=== PATIENT | male | born 1970 | race Caucasian/White ===

== ENCOUNTER 2020-12-17 19:11 | Emergency (ER) | payer OTHER ==
[~2020-12-17 19:11] MED LIST: ASPIRIN E.C. 3325 MG PO; CARAFATE1 GM PO; CARVEDILOL6.25 MG PO; IMDUR 30MG TABL30 MG PO; LIPITOR40 MG PO; LISINOPRIL 2.52.5 MG PO; PROTONIX 40MG T40 MG PO; SPIRONOLACTONE25 MG PO; ZANTAC150 MG PO
[2020-12-17 21:49] LABS: EOSINOPHIL 2.4 % (0-5); HGB 14.3 g/dl (13.2-18.0); LYMPHOCYTE 46.4 % (15-48); MCH 30.5 pg (25.0-31.0); MCV 89.6 fL (78.0-100.0); MONOCYTE 8.9 % (0-12); MPV 9.8 fL (6.0-9.5); NEUTROPHIL 41.2 % (41-80); NRBC 0; PLT 150 K/uL (150-400); RBC 4.69 M/uL (4.70-6.00); RDW 13.9 % (11.5-14.0); WBC 6.7 K/uL (4.0-10.5)
[2020-12-17 21:53] LABS: INR 1.03 (0.9-1.2); PROTHROMBIN TIME 12.9 SECONDS (11.8-13.4); PTT 29.6 SECONDS (24.4-34.7)
[2020-12-17 22:01] LABS: ALBUMIN 3.5 g/dL (3.4-5.0); BILIRUBIN - TOTAL 0.3 mg/dL (0.2-1.0); BUN/CREAT RATIO (CALC) 8.3 RATIO; CREATININE 0.96 mg/dL (0.67-1.17); POTASSIUM 3.6 mmol/L (3.5-5.1); TOTAL PROTEIN 6.5 g/dL (6.4-8.2)
[2020-12-17] MEDS ORDERED: ELIQUIS5 MG PO (22:11)
== END 2020-12-17 22:25 | disposition home or self-care (01) ==
LOC: FER 19:11
PROVIDERS: Internal Medicine
DX: I82.612 Acute embolism and thrombosis of superficial veins of left upper extremity (principal); F17.210 Nicotine dependence, cigarettes, uncomplicated
CPT/HCPCS: 36415; 80053; 84145; 85025; 85610; 85730; 93971